=== PATIENT | female | born 1960 | race American Indian/Alaskan Native ===

== ENCOUNTER 2022-02-10 09:44 | Outpatient (CLI) | payer MEDICARE ==
--- NOTE | 2022-02-12 14:18 | Mammography Report ---
DIGITAL SCREENING MAMMOGRAM WITH CAD, 02/10/2022 CLINICAL INFORMATION / INDICATION: Routine screening mammography. TECHNIQUE: Digital bilateral 2D mammography was obtained in the craniocaudal and mediolateral obliqu e projections. This examination was interpreted with the benefit of Computer-Aided Detection analysis . COMPARISON: None. The patient does not recall where prior mammograms were performed. FINDINGS: Breast Density: There are scattered areas of fibroglandular density. Right breast: There is an 8 cm focal asymmetry at the 12:00 position middle to posterior depth. Left breast: No dominant mass, suspicious calcifications, or architectural distortion in the left gabriella ast. IMPRESSION: Right breast asymmetry which will require additional evaluation with spot compression vie ws and possible ultrasound. Follow up recommendation: Special View: Spot Compression BI-RADS Category 0: INCOMPLETE. Needs additional imaging evaluation and/or prior mammograms for rad rivas. A "normal" or negative report should not discourage follow up or biopsy of a clinically significant f inding. A written summary of these findings will be mailed to the patient. The patient will be entered into a mammography reporting system which will generate a reminder letter for the patient's next appointmen t at the appropriate interval. The [employer] recommends yearly mammograms starting at age 40 and continuing as l deny as a woman is in good health. Breast MRI is recommended for women with an approximate 20-25% or greater lifetime risk of breast cancer, including women with a strong family history of breast or ova [place] cancer or who have been treated for Hodgkin's disease. Signer Name: Liane Weaver MD Signed: 02/12/2022 2:13 PM Workstation Name: [email or web address]
== END 2022-02-10 09:45 | disposition home or self-care (01) ==
LOC: MAMMO 09:44
DX: Z12.31 Encounter for screening mammogram for malignant neoplasm of breast (principal)
CPT/HCPCS: 77067